=== PATIENT | female | born 1985 | race Caucasian/White ===

== ENCOUNTER 2017-02-20 17:28 | Emergency (ER) | payer OTHER ==
[2017-02-20] MEDS: ACETAMINOPHEN 325 MG TAB PO (18:11)
[2017-02-20 18:20] LABS: BASO # 0.1 10^3/uL (0.0-0.2); BASO % 0.7 % (0.0-1.0); EOS # 0.1 10^3/uL (0.0-0.50); EOS % 1.3 % (0.0-3.0); HEMATOCRIT 40.3 % (36.0-47.0); HEMOGLOBIN 14.1 g/dl (12.0-16.0); IMMATURE GRANULOCYTE % 0.4 % (0-0); LYMPH # 1.8 10^3/uL (1.5-4.5); LYMPH % 21.9 % (24.0-44.0); MEAN CORPUSCULAR HEMOGLOBIN 31.8 pg (27.0-33.0); MONO # 0.4 10^3/uL (0.0-0.8); MONO % 5.1 % (0.0-5.0); NEUTROPHILS # 5.9 10^3/uL (1.8-7.7); NEUTROPHILS % 70.6 % (36.0-66.0); PLATELET COUNT, AUTOMATED 265 10^3/uL (150-450); RED BLOOD COUNT 4.43 10^6/uL (4.00-5.40); RED CELL DISTRIBUTION WIDTH 11.9 % (11.5-14.5); WHITE BLOOD COUNT 8.4 10^3/uL (4.0-10.0)
[2017-02-20 18:33] LABS: D-DIMER QUANT 281.7 ng/ml (<500)
[2017-02-20 18:51] LABS: ALBUMIN 3.9 GM/DL (3.2-5.2); ALBUMIN/GLOBULIN RATIO 1.05 (1.00-1.93); ALKALINE PHOSPHATASE 64 U/L (45-117); ALT/SGPT 24 U/L (12-78); ANION GAP 6 MEQ/L (8-16); AST/SGOT 14 U/L (7-37); BILIRUBIN,DIRECT 0.1 MG/DL (0.0-0.2); BILIRUBIN,TOTAL 0.3 MG/DL (0.2-1.0); BLOOD UREA NITROGEN 16 MG/DL (7-18); CALCIUM LEVEL 8.6 MG/DL (8.5-10.1); CARBON DIOXIDE LEVEL 27 MEQ/L (21-32); CHLORIDE LEVEL 108 MEQ/L (98-107); CPK CREATINE PHOSPHOKINASE 66 U/L (26-192); CREATININE FOR GFR 0.71 MG/DL (0.55-1.02); FREE T4 1.23 NG/DL (0.76-1.46); GLOMERULAR FILTRATION RATE > 60.0 (>60); GLUCOSE, FASTING 89 MG/DL (70-105); POTASSIUM SERUM 4.1 MEQ/L (3.5-5.1); SODIUM LEVEL 141 MEQ/L (136-145); TOTAL PROTEIN 7.6 GM/DL (6.4-8.2); TROPONIN I < 0.02 NG/ML (< 0.10)
[2017-02-20 18:57] LABS: MB/CK RELATIVE INDEX 1.51 (< OR =4)
== END 2017-02-20 19:11 | disposition home or self-care (01) ==
LOC: M ED 17:28
DX: M79.601 Pain in right arm (principal); R07.89 Other chest pain; E07.9 Disorder of thyroid, unspecified; F17.210 Nicotine dependence, cigarettes, uncomplicated; Z82.49 Family history of ischemic heart disease and other diseases of the circulatory system; Z79.899 Other long term (current) drug therapy
CPT/HCPCS: 71046

== ENCOUNTER → 2017-03-26 | Outpatient (REF) | payer OTHER ==
[2017-03-26 20:19] LABS: INFLUENZA A AMPLIFICATION POSITIVE (NEGATIVE); INFLUENZA B AMPLIFICATION NEGATIVE (NEGATIVE); RSV AMPLIFICATION NEGATIVE (NEGATIVE)
== END ==
LOC: M LAB REF 19:04
DX: J11.1 Influenza due to unidentified influenza virus with other respiratory manifestations (principal)
CPT/HCPCS: 87631

== ENCOUNTER → 2017-06-18 | Outpatient (CLI) | payer OTHER ==
[2017-06-18 07:12] LABS: BASO % 0.6 % (0.0-1.0); EOS # 0.2 10^3/uL (0.0-0.50); EOS % 3.2 % (0.0-3.0); HEMATOCRIT 40.5 % (36.0-47.0); HEMOGLOBIN 14.2 g/dl (12.0-15.5); IMMATURE GRANULOCYTE % 0.4 % (0-3.0); LYMPH # 2.2 10^3/uL (1.5-4.5); LYMPH % 31.2 % (24.0-44.0); MEAN CORPUSCULAR HEMOGLOBIN 30.9 pg (27.0-33.0); MEAN CORPUSCULAR HGB CONC 35.1 g/dl (32.0-36.5); MEAN CORPUSCULAR VOLUME 88.2 fl (80.0-96.0); MONO # 0.5 10^3/uL (0.0-0.8); MONO % 7.2 % (0.0-5.0); NEUTROPHILS # 4.1 10^3/uL (1.8-7.7); NEUTROPHILS % 57.4 % (36.0-66.0); PLATELET COUNT, AUTOMATED 300 10^3/uL (150-450); RED BLOOD COUNT 4.59 10^6/uL (4.00-5.40); RED CELL DISTRIBUTION WIDTH 12.1 % (11.5-14.5); WHITE BLOOD COUNT 7.1 10^3/uL (4.0-10.0)
[2017-06-18 07:44] LABS: ALBUMIN 3.8 GM/DL (3.2-5.2); ALBUMIN/GLOBULIN RATIO 1.12 (1.00-1.93); ALKALINE PHOSPHATASE 63 U/L (45-117); ALT/SGPT 27 U/L (12-78); ANION GAP 7 MEQ/L (8-16); AST/SGOT 16 U/L (7-37); BILIRUBIN,TOTAL 0.3 MG/DL (0.2-1.0); BLOOD UREA NITROGEN 16 MG/DL (7-18); CARBON DIOXIDE LEVEL 27 MEQ/L (21-32); CHLORIDE LEVEL 108 MEQ/L (98-107); CHOLESTEROL LEVEL 157 MG/DL (<200); CHOLESTEROL RISK RATIO 2.378 (<5); CREATININE FOR GFR 0.69 MG/DL (0.55-1.30); FREE T4 1.08 NG/DL (0.76-1.46); GLOMERULAR FILTRATION RATE > 60.0 (>60); GLUCOSE, FASTING 83 MG/DL (70-100); HDL CHOLESTEROL 66 MG/DL (>40); LDL CHOLESTEROL 81.6 MG/DL (<100); NON-HDL-C 91 MG/DL; POTASSIUM SERUM 4.4 MEQ/L (3.5-5.1); SODIUM LEVEL 142 MEQ/L (136-145); TOTAL PROTEIN 7.2 GM/DL (6.4-8.2); TRIGLYCERIDES LEVEL 47 MG/DL (<150)
== END ==
LOC: M LAB 05:58
DX: Z00.00 Encounter for general adult medical examination without abnormal findings (principal); E03.9 Hypothyroidism, unspecified; Z13.220 Encounter for screening for lipoid disorders
CPT/HCPCS: 84443

== ENCOUNTER → 2017-07-29 | Outpatient (REF) | payer OTHER | LOC: M SFHCPLAZ 11:36 | DX: Z12.4 Encounter for screening for malignant neoplasm of cervix (principal) | CPT/HCPCS: 88142 ==

== ENCOUNTER → 2017-08-20 | Outpatient (REF) | payer OTHER | LOC: M SFHCPLAZ 15:59 | DX: D22.39 Melanocytic nevi of other parts of face (principal) | CPT/HCPCS: 88305 ==

== ENCOUNTER 2017-12-06 06:45 | Day surgery (SDC) | payer OTHER ==
[2017-12-06] MEDS ORDERED: PROPOFOL 200 MG/20 ML VIAL As Ordered (07:20)
[2017-12-06] MEDS ORDERED: dexameTHASONE 4 MG/ML 1ML VIAL (J1100) As Ordered (07:20)
[2017-12-06] MEDS ORDERED: LIDOCAINE 2% INJ 100 MG/5 ML SDV (FOR ANES.) As Ordered (07:20)
[2017-12-06] MEDS ORDERED: fentaNYL 100 MCG/2 ML INJECTION (J3010) As Ordered (07:20)
[2017-12-06] MEDS ORDERED: MIDAZOLAM INJ 2 MG/2 ML VIAL (J2250) As Ordered ×2 (07:21→07:58)
[2017-12-06 07:36] LABS: CONTROL LINE UCG INT CTR LINE PRESENT; URINE PREG TEST NEGATIVE (NEGATIVE)
[2017-12-06] MEDS: ceFAZolin 1GM INJ (J0690 PER 500MG) As Ordered (08:03)
[2017-12-06] MEDS: LIDOCAINE 2% W/EPIN INJ 20ML **PRES FREE As Ordered (08:03)
[2017-12-06] MEDS ORDERED: KETOROLAC 60 MG/2 ML VIAL (J1885) As Ordered (08:13)
[2017-12-06] MEDS: BACITRACIN OINT 30GM As Ordered (08:14)
[2017-12-06] MEDS ORDERED: LR 1,000 ML IV (09:30)
== END 2017-12-06 09:26 | disposition home or self-care (01) ==
LOC: M SDC 06:45
DX: D17.0 Benign lipomatous neoplasm of skin and subcutaneous tissue of head, face and neck (principal); L90.5 Scar conditions and fibrosis of skin; E03.9 Hypothyroidism, unspecified; F41.9 Anxiety disorder, unspecified; K58.9 Irritable bowel syndrome, unspecified; Z79.899 Other long term (current) drug therapy; Z72.0 Tobacco use
CPT/HCPCS: 11441

== ENCOUNTER → 2017-12-11 | Outpatient (REF) | payer OTHER ==
[2017-12-11 22:00] LABS: AMORPHOUS SEDIMENT SMALL (NEGATIVE); APPEARANCE, URINE HAZY (CLEAR); BACTERIA, URINE AUTO NEGATIVE (NEGATIVE); BILIRUBIN, URINE AUTO NEGATIVE (NEGATIVE); BLOOD, URINE BLOOD 1+ (NEGATIVE); COLOR, URINE YELLOW (YELLOW); GLUCOSE, URINE (UA) AUTO NEGATIVE (NEGATIVE); KETONE, URINE AUTO NEGATIVE (NEGATIVE); LEUKOCYTE ESTERASE, URINE AUTO NEGATIVE (NEGATIVE); NITRITE, URINE AUTO NEGATIVE (NEGATIVE); PROTEIN, URINE AUTO NEGATIVE (NEGATIVE); RBC, URINE AUTO 12 /HPF (0-3); SPECIFIC GRAVITY URINE AUTO 1.014 (1.002-1.035); SQUAMOUS EPITHELIAL CELL UR AU 2 /HPF (0-6); UROBILINOGEN, URINE AUTO 0.2 mg/dL (0.0-2.0); WBC, URINE AUTO 0 /HPF (0-3)
== END ==
LOC: M LAB REF 10:05
DX: N39.0 Urinary tract infection, site not specified (principal)

== ENCOUNTER 2017-12-14 21:34 | Emergency (ER) | payer OTHER ==
[2017-12-14 22:36] LABS: KETONE, URINE AUTO RFX NEGATIVE (NEGATIVE); LEUKOCYTE ESTERASE UR AUTO RFX NEGATIVE (NEGATIVE); MUCUS, URINE RFX SMALL (NEGATIVE); NITRITE, URINE AUTO RFX NEGATIVE (NEGATIVE); RBC, URINE AUTO RFX 10 /HPF (0-3); SPECIFIC GRAVITY UR AUTO RFX 1.014 (1.002-1.035); SQUAM EPITHELIAL CELL UR AURFX 2 /HPF (0-6); WBC, URINE AUTO RFX 2 /HPF (0-3)
[2017-12-14 22:54] LABS: CONTROL LINE UCG INT CTR LINE PRESENT; URINE PREG TEST NEGATIVE (NEGATIVE)
[2017-12-14] MEDS: KETOROLAC TROMETHAMINE 10 MG TAB PO (23:03)
[2017-12-15] MEDS: NORCO, ANEXSIA 5/325MG TABLET (HYDROcodone/ACETAMINOPHEN) PO (00:11)
[2017-12-15] MEDS: NORCO 5/325MG TABLET (BULK FOR ED) PO (00:39)
== END 2017-12-15 00:53 | disposition home or self-care (01) ==
LOC: M ED 12-15 00:53
DX: N20.1 Calculus of ureter (principal); K59.00 Constipation, unspecified; E03.9 Hypothyroidism, unspecified; F41.9 Anxiety disorder, unspecified; K58.9 Irritable bowel syndrome, unspecified; Z87.42 Personal history of other diseases of the female genital tract; Z87.442 Personal history of urinary calculi; F17.210 Nicotine dependence, cigarettes, uncomplicated; Z79.899 Other long term (current) drug therapy
CPT/HCPCS: 74176

== ENCOUNTER → 2017-12-14 | Outpatient (CLI) | payer OTHER ==
[2017-12-14 17:02] LABS: ALBUMIN 3.7 GM/DL (3.2-5.2); ALBUMIN/GLOBULIN RATIO 1.12 (1.00-1.93); ALKALINE PHOSPHATASE 67 U/L (45-117); ALT/SGPT 28 U/L (12-78); AMYLASE 47 U/L (25-115); ANION GAP 5 MEQ/L (8-16); AST/SGOT 15 U/L (7-37); BILIRUBIN,TOTAL 0.2 MG/DL (0.2-1.0); BLOOD UREA NITROGEN 10 MG/DL (7-18); CALCIUM LEVEL 9.1 MG/DL (8.5-10.1); CARBON DIOXIDE LEVEL 29 MEQ/L (21-32); CHLORIDE LEVEL 106 MEQ/L (98-107); CREATININE FOR GFR 0.68 MG/DL (0.55-1.30); GLOMERULAR FILTRATION RATE > 60.0 (>60); GLUCOSE, FASTING 77 MG/DL (70-100); LIPASE 160 U/L (73-393); POTASSIUM SERUM 4.2 MEQ/L (3.5-5.1); SODIUM LEVEL 140 MEQ/L (136-145)
[2017-12-14 17:06] LABS: BASO # 0.1 10^3/uL (0.0-0.2); BASO % 0.5 % (0.0-1.0); EOS # 0.2 10^3/uL (0.0-0.50); EOS % 1.4 % (0.0-3.0); HEMOGLOBIN 14.6 g/dl (12.0-15.5); IMMATURE GRANULOCYTE % 0.5 % (0-3.0); LYMPH # 3.1 10^3/uL (1.5-4.5); LYMPH % 26.4 % (24.0-44.0); MEAN CORPUSCULAR HEMOGLOBIN 32.2 pg (27.0-33.0); MEAN CORPUSCULAR VOLUME 94.9 fl (80.0-96.0); MONO # 0.6 10^3/uL (0.0-0.8); MONO % 5.4 % (0.0-5.0); NEUTROPHILS # 7.7 10^3/uL (1.8-7.7); NEUTROPHILS % 65.8 % (36.0-66.0); PLATELET COUNT, AUTOMATED 289 10^3/uL (150-450); RED BLOOD COUNT 4.53 10^6/uL (4.00-5.40); WHITE BLOOD COUNT 11.7 10^3/uL (4.0-10.0)
[2017-12-14 19:14] LABS: CHLAMYDIA DNA AMPLIFICATION NEGATIVE (NEGATIVE); GC DNA AMPLIFICATION NEGATIVE (NEGATIVE)
== END ==
LOC: M WUC 14:35
DX: R30.0 Dysuria (principal); R10.815 Periumbilic abdominal tenderness
CPT/HCPCS: 82150

== ENCOUNTER → 2018-01-08 | Outpatient (REF) | payer OTHER ==
[2018-01-08 16:25] LABS: AMORPHOUS SEDIMENT SMALL (NEGATIVE); APPEARANCE, URINE HAZY (CLEAR); BACTERIA, URINE AUTO NEGATIVE (NEGATIVE); BILIRUBIN, URINE AUTO NEGATIVE (NEGATIVE); BLOOD, URINE BLOOD NEGATIVE (NEGATIVE); COLOR, URINE YELLOW (YELLOW); GLUCOSE, URINE (UA) AUTO NEGATIVE (NEGATIVE); KETONE, URINE AUTO NEGATIVE (NEGATIVE); LEUKOCYTE ESTERASE, URINE AUTO NEGATIVE (NEGATIVE); NITRITE, URINE AUTO NEGATIVE (NEGATIVE); PROTEIN, URINE AUTO NEGATIVE (NEGATIVE); RBC, URINE AUTO 1 /HPF (0-3); SPECIFIC GRAVITY URINE AUTO 1.015 (1.002-1.035); SQUAMOUS EPITHELIAL CELL UR AU 0 /HPF (0-6); UROBILINOGEN, URINE AUTO 0.2 mg/dL (0.0-2.0); WBC, URINE AUTO 1 /HPF (0-3)
== END ==
LOC: M SMT 15:35
DX: N20.0 Calculus of kidney (principal)
CPT/HCPCS: 81001

== ENCOUNTER 2018-02-22 08:59 | Day surgery (SDC) | payer OTHER ==
[~2018-02-22] VITALS: Ht 167.6 cm; Wt 63.0 kg
[~2018-02-22 08:59] MED LIST: BENT20TA PO; CLAR1TAB2 PO; FLOM0.4C39 PO; FLON1SPR NARES; LEVO10VL PO; LEVO150T7 PO; MIRA3350 PO; MOME50SP NARES; NICO21DI31 TD; NITR100C2 PO; NORCOTAB PO; NS 1,000 ML IV ONE; PHEN-501 PO; PRED20TA PO; PROP10TAB PO; TGTCAP PO; propranolol PO
[2018-02-22] MEDS ORDERED: PROPOFOL 200 MG/20 ML VIAL As Ordered ONE ×2 (09:10→09:14)
[2018-02-22] MEDS ORDERED: LIDOCAINE 2% INJ 100 MG/5 ML SDV (FOR ANES.) As Ordered ONE (09:10)
--- NOTE | 2018-02-22 10:45 | ROOR ---
Patient Name: Koki Carlisle Procedure Date: 02/22/2018 10:14 AM Date of : 1985 Age: 32 Room: [facility] Gender: Female Note Status: Finalized Procedure: Colonoscopy Indications: Abnormal CT of the GI tract Providers: Jonatan Maddox MD Referring MD: ROMAIN ANDERSON Samia [facility] ROMAIN Perez Requesting Provider: Medicines: Monitored Anesthesia Care Complications: No immediate complications. Procedure: Pre-Anesthesia Assessment: - Prior to the procedure, a History and Physical was performed, and patient medications and allergies were reviewed. The patient is competent. The risks and benefits of the procedure and the sedation options and risks were discussed with the patient. All questions were answered and informed consent was obtained. Patient identification and proposed procedure were verified by the physician, the nurse and the anesthesiologist in the procedure room. Mental Status Examination: alert and oriented. Airway Examination: normal oropharyngeal airway and neck mobility. Respiratory Examination: clear to auscultation. CV Examination: normal. Prophylactic Antibiotics: The patient does not require prophylactic antibiotics. Prior Anticoagulants: The patient has taken no previous anticoagulant or antiplatelet agents. ASA Grade Assessment: II - A patient with mild systemic disease. After reviewing the risks and benefits, the patient was deemed in satisfactory condition to undergo the procedure. The anesthesia plan was to use monitored anesthesia care (MAC). Immediately prior to administration of medications, the patient was re-assessed for adequacy to receive sedatives. The heart rate, respiratory rate, oxygen saturations, blood pressure, adequacy of pulmonary ventilation, and response to care were monitored throughout the procedure. The physical status of the patient was re-assessed after the procedure. The Colonoscope was introduced through the anus and advanced to the terminal ileum, with identification of the appendiceal orifice and IC valve. The colonoscopy was performed without difficulty. The patient tolerated the procedure well. The quality of the bowel preparation was good. The terminal ileum, ileocecal valve, appendiceal orifice, and rectum were photographed. Scope insertion time was 3 minutes. Scope withdrawal time was 7 minutes. The total duration of the procedure was 10 minutes. Findings: The perianal and digital rectal examinations were normal. The terminal ileum appeared normal. Normal mucosa was found in the entire colon. Biopsies for histology were taken with a cold forceps from the right colon, left colon and rectosigmoid colon for evaluation of microscopic colitis. Verification of patient identification for the specimen was done by the physician and nurse using the patient's name, date and medical record number. Estimated blood loss was minimal. The entire examined colon appeared normal on direct and retroflexion views. Impression: - The examined portion of the ileum was normal. - Normal mucosa in the entire examined colon. Biopsied. - The entire examined colon is normal on direct and retroflexion views. Recommendation: - Patient has a contact number available for emergencies. The signs and symptoms of potential delayed complications were discussed with the patient. Return to normal activities tomorrow. Written discharge instructions were provided to the patient. - Resume previous diet. - Continue present medications. - Await pathology results. - Repeat colonoscopy at age 49 for screening purposes. - Based on the biopsy results you will receive a phone call from GI clinic in 2-3 weeks to review the pathology results AND/OR your results will be faxed to your Primary care physician. - Return to primary care physician. Jonatan Maddox MD Jonatan Maddox MD 02/22/2018 10:44:58 AM This report has been signed electronically. Number of Addenda: 0 Note Initiated On: 02/22/2018 10:14 AM Estimated Blood Loss: Estimated blood loss was minimal.
[2018-02-22 11:00] VITALS: BP 105/56
== END 2018-02-22 11:20 | disposition home or self-care (01) ==
LOC: M OPP 08:59
PROVIDERS: ATTEND Internal Medicine Gastroenterology
DX: R93.3 Abnormal findings on diagnostic imaging of other parts of digestive tract (principal); E03.9 Hypothyroidism, unspecified; F41.9 Anxiety disorder, unspecified; K58.9 Irritable bowel syndrome, unspecified; Z79.899 Other long term (current) drug therapy; F17.210 Nicotine dependence, cigarettes, uncomplicated

== ENCOUNTER → 2018-04-14 | Outpatient (REF) | payer OTHER ==
[~2018-04-14] MED LIST changes: -NS 1,000 ML IV ONE
[2018-04-14 12:06] LABS: INFLUENZA A AMPLIFICATION NEGATIVE (NEGATIVE); INFLUENZA B AMPLIFICATION NEGATIVE (NEGATIVE)
== END ==
LOC: M LAB REF 11:14
PROVIDERS: ATTEND Physician Assistant
DX: J11.1 Influenza due to unidentified influenza virus with other respiratory manifestations (principal)

== ENCOUNTER → 2018-04-14 | Outpatient (CLI) | payer OTHER ==
[2018-04-14 13:33] LABS: HEMATOCRIT 38.5 % (36.0-47.0); HEMOGLOBIN 13.3 g/dl (12.0-15.5); MEAN CORPUSCULAR HEMOGLOBIN 31.7 pg (27.0-33.0); MEAN CORPUSCULAR HGB CONC 34.5 g/dl (32.0-36.5); MEAN CORPUSCULAR VOLUME 91.7 fl (80.0-96.0); PLATELET COUNT, AUTOMATED 257 10^3/uL (150-450)
[2018-04-14 14:21] LABS: FREE T4 1.13 NG/DL (0.76-1.46); THYROID STIMULATING HORMONE 3.59 uIU/ML (0.358-3.740)
== END ==
LOC: M SMT 09:30
PROVIDERS: ATTEND Obstetrics & Gynecology
DX: N93.9 Abnormal uterine and vaginal bleeding, unspecified (principal)

== ENCOUNTER → 2018-04-15 | Outpatient (REF) | payer OTHER ==
[2018-04-19 16:21] LABS: HPV HYBRID CAPTURE II Negative (Negative)
== END ==
LOC: M LAB REF 14:42
PROVIDERS: ATTEND Obstetrics & Gynecology
DX: Z12.4 Encounter for screening for malignant neoplasm of cervix (principal); Z11.51 Encounter for screening for human papillomavirus (HPV)

== ENCOUNTER → 2018-04-20 | Outpatient (CLI) | payer OTHER ==
--- NOTE | 2018-04-21 05:13 | REP ---
Clinical: Abnormal uterine bleeding. Technique: Transabdominal pelvic ultrasound followed by transvaginal examination for better evaluation of the endometrium and adnexa. Findings: Bladder is collapsed. Normal anteverted uterus measures 8.9 x 4.0 x 5.7 cm. Endometrial complex measures 10.1 mm thickness. No discrete uterine or endometrial abnormalities appreciated. Right ovary is normal in appearance and measures 2.7 x 1.9 x 2.0 cm. Left ovary measures 2.9 x 2.6 x 3.0 cm and includes 1.6 cm dominant follicle. No pelvic fluid or adnexal mass lesion. Impression: Essentially normal pelvic ultrasound as described above. Electronically Signed by Erwin Corey MD 04/21/2018 05:05 A
== END ==
LOC: M RAD 17:06
PROVIDERS: ATTEND Obstetrics & Gynecology
DX: N93.9 Abnormal uterine and vaginal bleeding, unspecified (principal)

== ENCOUNTER 2018-05-03 13:53 | Emergency (ER) | payer OTHER ==
[~2018-05-03] VITALS: Ht 167.6 cm; Wt 65.9 kg
[2018-05-03] MEDS ORDERED: ESCI5SOL3 PO (14:02)
[2018-05-03] MEDS ORDERED: IBUP-1022 PO (14:02)
[2018-05-03] MEDS ORDERED: AMOX500T PO (14:02)
[2018-05-03] MEDS ORDERED: OMEP40CA2 PO (14:24)
[2018-05-03] MEDS ORDERED: GI COCKTAIL 50ML BTL(HYOSCYAMINE/MAALOX/LIDOCAINE VISCOUS)(1:3:1) PO ONE (14:45)
--- NOTE | 2018-05-03 15:20 | ECGEPIP ---
Stationary ECG Study [facility] - ED Test Date: 2018-05-03 Pat Name: OTF LEDEZMA Department: Room: - Gender: F Case Management Coordinator: : 1985 Requested By: JEET Skinner PA-C Order Number: [id number] Reading MD: Jenny Menon Measurements Intervals [place] Rate: 63 P: 46 TN: 139 QRS: 51 QRSD: 100 T: 56 QT: 380 QTc: 389 Interpretive Statements SINUS RHYTHM WITH MARKED SINUS ARRHYTHMIA POSSIBLE RIGHT VENTRICULAR CONDUCTION DELAY SIMILAR 03/02/17 Electronically Signed On 05-03-2018 15:20:04 EDT by Jenny Menon
[2018-05-03] MEDS ORDERED: CARA1TAB6 PO (15:29)
[2018-05-03 15:37] VITALS: BP 118/58
[2018-05-16] MEDS ORDERED: LEXA1TAB PO (09:36)
== END 2018-05-03 15:44 | disposition home or self-care (01) ==
LOC: M ED 13:53
DX: K27.9 Peptic ulcer, site unspecified, unspecified as acute or chronic, without hemorrhage or perforation (principal); H65.03 Acute serous otitis media, bilateral; K58.9 Irritable bowel syndrome, unspecified; F41.9 Anxiety disorder, unspecified; Z87.442 Personal history of urinary calculi; Z87.891 Personal history of nicotine dependence; Z79.899 Other long term (current) drug therapy

== ENCOUNTER → 2018-05-18 | Outpatient (REF) | payer OTHER ==
[~2018-05-18] MED LIST changes: +AMOX500T PO; +CARA1TAB6 PO; +ESCI5SOL3 PO; +HYDR-3715 PO; +IBUP-1022 PO; +LEVO100I PO; -LEVO10VL PO; +LEXA1TAB PO; -NORCOTAB PO; +OMEP40CA2 PO; +PROP10TA55 PO; -PROP10TAB PO
== END ==
LOC: M LAB REF 17:26
PROVIDERS: ATTEND Obstetrics & Gynecology
DX: N93.9 Abnormal uterine and vaginal bleeding, unspecified (principal)

== ENCOUNTER 2018-05-30 06:00 | Day surgery (SDC) | payer OTHER ==
[2018-05-30] VITALS (8 sets, daily range): BP systolic 84–129; BP diastolic 48–85
[~2018-05-30] VITALS: Ht 167.6 cm; Wt 72.2 kg
[2018-05-30 06:22] LABS: HEMOGLOBIN 14.2 g/dl (12.0-15.5); MEAN CORPUSCULAR HEMOGLOBIN 31.4 pg (27.0-33.0); MEAN CORPUSCULAR HGB CONC 34.6 g/dl (32.0-36.5); MEAN CORPUSCULAR VOLUME 90.7 fl (80.0-96.0); PLATELET COUNT, AUTOMATED 236 10^3/uL (150-450); RED BLOOD COUNT 4.52 10^6/uL (4.00-5.40); WHITE BLOOD COUNT 6.9 10^3/uL (4.0-10.0)
[2018-05-30 06:29] LABS: HCG, SERUM QUALITATIVE NEGATIVE (NEGATIVE)
[2018-05-30] MEDS ORDERED: LR 1,000 ML IV SCH ×2 (07:00→10:30)
[2018-05-30] MEDS ORDERED: METHYLENE BLUE 0.5% (5MG/ML) 10 ML AMP (PROVAYBLUE)(Q9968 PER 1MG) As Ordered ONE (07:09)
[2018-05-30] MEDS ORDERED: BUPIVACAINE HCL 0.25% 30 ML VIAL As Ordered ONE (07:09)
[2018-05-30] MEDS ORDERED: dexameTHASONE 4 MG/ML 1ML VIAL (J1100) As Ordered ONE (07:12)
[2018-05-30] MEDS ORDERED: ONDANSETRON 4MG/2ML VIAL (J2405) As Ordered ONE (07:12)
[2018-05-30] MEDS ORDERED: ROCURONIUM BROMIDE 50 MG/5 ML VIAL As Ordered ONE ×2 (07:12→08:48)
[2018-05-30] MEDS ORDERED: PROPOFOL 200 MG/20 ML VIAL As Ordered ONE (07:12)
[2018-05-30] MEDS ORDERED: LIDOCAINE 2% INJ 100 MG/5 ML SDV (FOR ANES.) As Ordered ONE (07:12)
[2018-05-30] MEDS ORDERED: fentaNYL 250 MCG/5 ML INJECTION (J3010) As Ordered ONE (07:12)
[2018-05-30] MEDS ORDERED: MIDAZOLAM INJ 2 MG/2 ML VIAL (J2250) As Ordered ONE (07:12)
[2018-05-30] MEDS ORDERED: KETOROLAC 60 MG/2 ML VIAL (J1885) As Ordered ONE (09:06)
[2018-05-30] MEDS ORDERED: SUGAMMADEX SODIUM 500 MG/5 ML VIAL (BRIDION) As Ordered ONE (09:06)
[2018-05-30] MEDS ORDERED: ePHEDrine SULFATE 25 MG/5 ML(5MG/ML) SYRINGE As Ordered ONE (09:21)
[2018-05-30] MEDS ORDERED: fentaNYL 100 MCG/2 ML INJECTION (J3010) As Ordered ONE (09:51)
[2018-05-30] MEDS ORDERED: PROMETHAZINE INJ 25 MG/ML VIAL (J2550) IV PRN (10:15)
[2018-05-30] MEDS ORDERED: PERCOCET 5MG/325MG TAB PO PRN (10:15)
[2018-05-30] MEDS ORDERED: OXYC1TAB23 PO (10:18)
[2018-05-30] MEDS ORDERED: IBUP80TA PO (10:20)
[2018-05-30] MEDS ORDERED: COLA100C5 PO (10:20)
[2018-05-30] MEDS ORDERED: ZOFR4TAB16 PO (10:21)
[2018-05-30] MEDS ORDERED: ONDANSETRON 4MG/2ML VIAL (J2405) IV PRN (10:30)
[2018-05-30] MEDS: HYDROMORPHONE HCL 0.5 MG/ 0.5 ML SYRINGE (J1170 PER 1) IV PRN ×4 (10:35→10:55)
[2018-05-30] MEDS: PERCOCET 5MG/325MG TAB PO PRN ×2 (10:45→11:15)
--- NOTE | 2018-05-30 10:53 | NUR ---
Operative Note DATE OF PROCEDURE: 05/30/2018 PREOPERATIVE DIAGNOSIS: 1. Abnormal uterine bleeding, severe primary dysmenorrhea POSTOPERATIVE DIAGNOSIS: 1. Abnormal uterine bleeding, severe primary dysmenorrhea PROCEDURE PERFORMED: Robotic-assisted total laparoscopic hysterectomy, bilateral salpingectomy, right ovarian cystectomy and cystoscopy. SURGEON: Angelito Tam DO. PERSONAL BANKING ASSISTANT: LENNOX Pandey (needed for uterine manipulation). ANESTHESIA: General endotracheal. SPECIMENS TO PATHOLOGY: Uterus, cervix with bilateral fallopian tubes ESTIMATED BLOOD LOSS: 200 mL. FLUIDS REPLACED: 1.5 liters lactated Ringer's. DRAINS: Dyer catheter 200 mL. COMPLICATIONS: None. PREOPERATIVE ANTIBIOTICS: Ancef 2g IV x 1 (administered within 30 minutes of procedure start time) INTRAOPERATIVE FINDINGS: Uterus was approximately cm in greatest dimension. The uterus was of normal shape/contour (no leiomyomas). The right and left ovary and fallopian tubes were normal in appearance with the exception of a right ovarian cyst approximately 3 cm greatest dimension. Cystoscopic findings: No bladder injury. No suture material. Bilateral ureteral orifice efflux visualized after IV infusion of methylene blue. INDICATION: Abnormal uterine bleeding, declining further medical management or more conservative surgical management (i.e endometrial ablation) PROCEDURE: The patient was counseled and consented on the risks, benefits, indications, and alternatives of the procedure. Informed consent was obtained. She was take n to the operating room with an IV running and placed on the operating table in the dorsal supine position. General anesthesia was administered and airway secured without any difficulty. The patient was placed in a level horizontal low lithotomy position. She was prepped and draped in a normal sterile fashion. A time-out was performed per protocol. A Dyer catheter was placed under sterile conditions. A sterile speculum was placed into the vagina with good visualization of the cervix. The anterior lip of the cervix was grasped with a single-tooth tenaculum and downward traction was applied. The uterus was sounded to 9 cm. The cervix was sequentially dilated with Magen dilators up to #16. The anterior and posterior lip were tagged with and interrupted stitch using #0 Vicryl suture. The VCare uterine manipulator was placed in typical fashion without any difficulty. The single-toothed tenaculum was removed. The sterile speculum was removed. The VCare uterine manipulator was noted to be adequately in place. A glove switch was performed. Attention was turned to the abdomen. A 2 mm umbilical incision was made with the 11 blade. The Veress needle was placed through this incision into the intraperitoneal cavity. Intraperitoneal placement was confirmed with the following checks: no resistance/ease of flow of normal saline from the attached syringe through the Veress needle, no return of blood/fluid/succus upon aspirating with the attached syringe, a positive drop test, and the opening pressure during insufflation was less than 10 mmHg. The abdomen was insufflated with 2.5 liters of gas. The Veress needle was removed. An 8 mm horizontal midline, supraumbilical incision was made with the 11 blade. Through this incision, the trocar was placed under direct visualization technique into the intraperitoneal cavity. Intraperitoneal placement was confirmed. The patient was placed in a low lithotomy steep Trendelenberg position. The right and left lower quadrant port sites were placed via 8 mm incisions using the 11 blade. The 8 mm da Conor cannulas were placed under laparoscopic guidance on both sides. An additional 8 mm accessory port-site was placed under laparoscopic guidance in the left upper quadrant. Given the successful placement of all the DaVinci cannulas, the robot was easily side-docked. Attention was turned to the AddMyBesti robotic console. The right fallopian tube, utero-ovarian ligament, and round ligament were sequentially clamped, coagulated and transected with the ITM Softwareinci vessel sealer device. The Da Conor vessel sealer was used to dissect and mobilize the right-sided half of the vesicouterine peritoneum/"bladder flap" with both blunt and bipolar dissection. The right uterine vasculature was skeletonized and identified. Excellent hemostasis was achieved. The left fallopian tube, utero-ovarian ligament and round ligament were sequentially clamped, coagulated and transected using the Da Conor vessel sealer device. The left uterine vasculature was skeletonized and easily identified. Excellent hemostasis was noted. The remainder of the vesicouterine peritoneum was dissected and mobilized along the anterior portion of the [facility] uterine manipulator cup in order to complete the bladder flap. This resulted in adequate mobilization/displacement of the bladder away from the cervix. During all of the dissection described above, an occasional small bleeding vessel needed to be cauterized with the DaVinci bipolar forceps. The right and left uterine vasculature were sequentially clamped, coagulated and transected with both DaVinci bipolar forceps and vessel sealer instruments. Excellent blanching of the uterus was noted, thus indicating that the blood supply to the uterus was obliterated. Excellent hemostasis was noted. The DaVinci monopolar kamlesh were used to create the circumferential colpotomy around the VCare cervical cup border. Incidental small bleeding vaginal vessels were cauterized with the DaVinci bipolar forceps. This circumferential incision was completed and the uterus with the cervix was noted to be fully amputated as one unit. This specimen was brought through the colpotomy into the vagina, and ultimately removed and sent to pathology for permanent section. The right and left distal fallopian tubes were identified and excised with the Da Conor vessel sealer instrument, thus removing both fimbriated ends of each fallopian tube. These specimens were brought through the accessory cannula and sent to pathology for permanent section. The right ovarian cyst was dissected with the monopolar kamlesh and removed intact. This was also placed in the vagina for eventual removal. The vaginal cuff was closed in running fashion with V-Loc suture. Excellent hemostasis of the vaginal cuff was noted. The lower abdomen/pelvis was irrigated and suctioned, thus removing all blood and clot. Excellent hemostasis was noted. Krystle was placed over the surgical sites to maintain hemostasis. The insufflation gas was released from the intraperitoneal cavity. All cannulas were removed. The robot was un-docked without any difficulty. The patient was taken out of steep Trendelenburg and placed back into a level horizontal low lithotomy position. The Dyer catheter was removed. A 30 degree cystoscope was placed transurethrally into the bladder. The entire bladder mucosa was examined. There was no evidence of a bladder injury or suture material. Brisk bilateral ureteral orifice efflux of urine was visualized after IV infusion of methylene blue. The cystoscope was removed and the Dyer catheter was replaced. The vagina was copiously irrigated. The specimens were removed from the vagina. The vaginal cuff was palpated and noted to be intact. The sponge, needle, and instrument counts were correct. A glove switch was performed. Attention was turned back to the abdomen. The patient was placed back into Trendelenburg. The gas was released from the abdomen. The cannulas were all removed. Each skin incision was closed with #4-0 Monocryl in subcuticular fashion and reinforced with Dermabond. Sponge, needle, and instrument counts were again correct. The patient tolerated the entire procedure well. She was transferred to the postanesthesia care unit in good and stable condition. Tomi Tam DO
[2018-05-30] MEDS: fentaNYL 100 MCG/2 ML INJECTION (J3010) IV PRN ×4 (11:10→11:25)
[2018-05-30] MEDS: LEVOTHYROXINE 150MCG TABLET (0.15MG) PO SCH (12:58)
[2018-05-30] MEDS: SUCRALFATE 1 GM TAB PO SCH ×3 (12:58→20:07)
[2018-05-30] MEDS: DOCUSATE SODIUM 100 MG CAP PO SCH ×2 (12:58→20:07)
[2018-05-30] MEDS: LR 1,000 ML IV SCH ×2 (12:58→18:23)
[2018-05-30] MEDS: ESCITALOPRAM OXALATE 10 MG TAB (LEXAPRO) PO SCH (12:58)
[2018-05-30] MEDS: OMEPRAZOLE 20 MG CAP PO SCH (12:58)
[2018-05-30] MEDS: FLUTICASONE PROP 0.05% NASAL SPRAY 16 GM (FLONASE) NARES SCH (12:59)
[2018-05-30] MEDS: KETOROLAC 30 MG/ML VIAL (J1885) IV SCH ×2 (15:19→20:07)
[2018-05-30] MEDS: ONDANSETRON 4MG/2ML VIAL (J2405) IV PRN (17:25)
[2018-05-30] MEDS: SIMETHICONE 80 MG CHEW TAB PO PRN (20:37)
[2018-05-31] MEDS: PERCOCET 5MG/325MG TAB PO PRN ×3 (00:23→11:58)
[2018-05-31 02:00] VITALS: BP 109/58
[2018-05-31] MEDS: KETOROLAC 30 MG/ML VIAL (J1885) IV SCH (02:40)
[2018-05-31] MEDS: SIMETHICONE 80 MG CHEW TAB PO PRN ×2 (02:40→08:51)
[2018-05-31] MEDS: LEVOTHYROXINE 150MCG TABLET (0.15MG) PO SCH (05:27)
[2018-05-31 06:00] VITALS: BP 115/54
[2018-05-31] MEDS: ONDANSETRON 4MG/2ML VIAL (J2405) IV PRN (06:26)
[2018-05-31 06:40] LABS: BASO % 0.3 % (0.0-1.0); EOS # 0.1 10^3/uL (0.0-0.50); EOS % 0.7 % (0.0-3.0); HEMATOCRIT 31.1 % (36.0-47.0); LYMPH # 2.7 10^3/uL (1.5-4.5); LYMPH % 28.3 % (24.0-44.0); MEAN CORPUSCULAR HEMOGLOBIN 31.3 pg (27.0-33.0); MEAN CORPUSCULAR HGB CONC 34.4 g/dl (32.0-36.5); MEAN CORPUSCULAR VOLUME 90.9 fl (80.0-96.0); MONO # 0.7 10^3/uL (0.0-0.8); MONO % 7.6 % (0.0-5.0); NEUTROPHILS # 5.9 10^3/uL (1.8-7.7); NEUTROPHILS % 62.9 % (36.0-66.0); PLATELET COUNT, AUTOMATED 191 10^3/uL (150-450); RED BLOOD COUNT 3.42 10^6/uL (4.00-5.40); WHITE BLOOD COUNT 9.4 10^3/uL (4.0-10.0)
[2018-05-31 06:46] LABS: HEMOGLOBIN 10.7 g/dl (12.0-15.5)
[2018-05-31] MEDS: DOCUSATE SODIUM 100 MG CAP PO SCH (08:50)
[2018-05-31] MEDS: SUCRALFATE 1 GM TAB PO SCH ×2 (08:50→11:57)
[2018-05-31] MEDS: OMEPRAZOLE 20 MG CAP PO SCH (08:51)
[2018-05-31] MEDS: ESCITALOPRAM OXALATE 10 MG TAB (LEXAPRO) PO SCH (08:51)
[2018-05-31] MEDS: FLUTICASONE PROP 0.05% NASAL SPRAY 16 GM (FLONASE) NARES SCH (08:51)
[2018-05-31 10:00] VITALS: BP 116/66
[2018-05-31] MEDS ORDERED: IBUPROFEN 800 MG TAB PO SCH (11:00)
== END 2018-05-31 12:53 | disposition home or self-care (01) ==
LOC: M SDC 06:00 → M MSPAV 11:56 → M SDC 05-31 12:53
PROVIDERS: ATTEND Obstetrics & Gynecology
DX: N92.6 Irregular menstruation, unspecified (principal); N94.6 Dysmenorrhea, unspecified; N83.11 Corpus luteum cyst of right ovary; E03.9 Hypothyroidism, unspecified; K58.9 Irritable bowel syndrome, unspecified; K21.9 Gastro-esophageal reflux disease without esophagitis; F41.9 Anxiety disorder, unspecified; Z92.3 Personal history of irradiation; Z79.899 Other long term (current) drug therapy
CPT/HCPCS: 36415; 58571; 84703; 85025; 85027; 86850; 86900; 86901; 88307; 96361; 96374; 96375; 96376; J0690; J1100; J1170; J1885; J2250; J2405; J3010; Q9968

== ENCOUNTER → 2018-07-07 | Outpatient (CLI) | payer OTHER ==
[~2018-07-07] MED LIST changes: +COLA100C5 PO; +IBUP80TA PO; +OXYC1TAB23 PO; +ZOFR4TAB16 PO
[2018-07-07 17:13] LABS: FREE T4 1.62 NG/DL (0.76-1.46); THYROID STIMULATING HORMONE 0.466 uIU/ML (0.358-3.740)
== END ==
LOC: M LAB 15:43
PROVIDERS: ATTEND Physician Assistant
DX: E03.9 Hypothyroidism, unspecified (principal)

== ENCOUNTER → 2018-07-12 | Outpatient (REF) | payer OTHER ==
[2018-07-12 20:14] LABS: CHLAMYDIA DNA AMPLIFICATION NEGATIVE (NEGATIVE); GC DNA AMPLIFICATION NEGATIVE (NEGATIVE)
== END ==
LOC: M LAB REF 17:07
PROVIDERS: ATTEND Obstetrics & Gynecology
DX: Z11.3 Encounter for screening for infections with a predominantly sexual mode of transmission (principal)

== ENCOUNTER → 2018-09-09 | Outpatient (REF) | payer OTHER | LOC: M LAB REF 15:50 | PROVIDERS: ATTEND Physician Assistant | DX: J02.9 Acute pharyngitis, unspecified (principal) ==

== ENCOUNTER → 2018-09-27 | Outpatient (REF) | payer OTHER | LOC: M SFHCPLAZ 10:02 | PROVIDERS: ATTEND Physician Assistant Medical | DX: K12.1 Other forms of stomatitis (principal) ==

== ENCOUNTER → 2018-09-28 | Outpatient (CLI) | payer OTHER ==
[2018-09-28 09:59] LABS: BASO # 0.1 10^3/uL (0.0-0.2); BASO % 0.6 % (0.0-1.0); EOS # 0.1 10^3/uL (0.0-0.50); EOS % 1.2 % (0.0-3.0); HEMATOCRIT 43.2 % (36.0-47.0); HEMOGLOBIN 14.5 g/dl (12.0-15.5); LYMPH # 1.9 10^3/uL (1.5-4.5); LYMPH % 22.1 % (24.0-44.0); MEAN CORPUSCULAR HEMOGLOBIN 30.6 pg (27.0-33.0); MEAN CORPUSCULAR HGB CONC 33.6 g/dl (32.0-36.5); MEAN CORPUSCULAR VOLUME 91.1 fl (80.0-96.0); MONO # 0.5 10^3/uL (0.0-0.8); MONO % 6.1 % (0.0-5.0); NEUTROPHILS # 5.9 10^3/uL (1.8-7.7); NEUTROPHILS % 69.8 % (36.0-66.0); PLATELET COUNT, AUTOMATED 247 10^3/uL (150-450); RED BLOOD COUNT 4.74 10^6/uL (4.00-5.40); WHITE BLOOD COUNT 8.4 10^3/uL (4.0-10.0)
[2018-09-28 11:07] LABS: FREE T4 1.19 NG/DL (0.76-1.46)
[2018-09-28 11:20] LABS: HIV 1&2 SCREEN CENTAUR NEGATIVE (NEGATIVE)
[2018-09-30 00:07] LABS: HSV IgM TYPES 1&2 2.03 Ratio (0.00-0.90)
== END ==
LOC: M LAB 08:54
PROVIDERS: ATTEND Physician Assistant Medical
DX: K12.1 Other forms of stomatitis (principal)

== ENCOUNTER → 2018-10-05 | Outpatient (REF) | payer OTHER | LOC: M LAB REF 18:03 | PROVIDERS: ATTEND Specialist | DX: K13.79 Other lesions of oral mucosa (principal) ==

== ENCOUNTER → 2018-11-03 | Outpatient (CLI) | payer OTHER ==
--- NOTE | 2018-11-11 08:55 | REP ---
Clinical: Epigastric pain. Technique: Real time sagastume scale and color evaluation using curved array transducer. Findings: Liver, spleen, and pancreas are normal in contour, size, and echogenicity without focal significant hepatic, pancreatic, or splenic lesion identified. Splenic index equals 392. A 7 mm echogenic focus within the left hepatic lobe is nonspecific and likely benign suggesting small hemangioma. The gallbladder is normal and without gallstones, wall thickening, or pericholecystic fluid. No biliary ductal dilatation is appreciated and the common bile duct measures 2.2 mm diameter. Bilateral kidneys are normal in reniform shape without hydronephrosis. Right kidney measures 10.9 x 4.5 x 3.4 cm. Left kidney measures 10.1 x 4.1 x 5.3 cm. Abdominal aorta is normal and measures 1.8 cm maximal diameter. No ascites. Abdominal aorta demonstrates normal arterial wave pattern and velocity and 92.3 cm/sec. Superior mesenteric artery velocities are 129 and 168 cm/sec on inspiration and expiration respectively. A 33 degrees angle on inspiration. 53 degrees angle on expiration. Celiac artery velocities remain normal at 109 cm/sec and 119 cm/sec on inspiration and expiration respectively. A 30 degrees angle on inspiration increases to 72 degrees on expiration with mild hooking appearance which may be associated with median arcuate ligament syndrome. Impression: 1. Possible subcentimeter hepatic hemangioma in the left lobe of the liver. 2. Findings related to the celiac artery on Doppler and sagastume scale imaging as described above are somewhat inconclusive and further investigation as well as correlation is recommended. Electronically Signed by Erwin Corey MD 11/11/2018 08:46 A
== END ==
LOC: M RAD 07:27
PROVIDERS: ATTEND Internal Medicine Gastroenterology
DX: R10.13 Epigastric pain (principal)

== ENCOUNTER → 2018-11-18 | Outpatient (REF) | payer OTHER | LOC: M LAB REF 14:55 | PROVIDERS: ATTEND Internal Medicine Gastroenterology | DX: K58.0 Irritable bowel syndrome with diarrhea (principal) ==

== ENCOUNTER → 2019-01-17 | Outpatient (CLI) | payer OTHER ==
[~2019-01-17] MED LIST changes: -OMEP40CA2 PO; +OMEP40CA97 PO
[2019-01-17 17:18] LABS: BASO % 0.1 % (0.0-1.0); HEMATOCRIT 42.2 % (36.0-47.0); HEMOGLOBIN 14.4 g/dl (12.0-15.5); LYMPH # 0.6 10^3/uL (1.5-5.0); LYMPH % 4.9 % (24.0-44.0); MEAN CORPUSCULAR HEMOGLOBIN 32.4 pg (27.0-33.0); MEAN CORPUSCULAR HGB CONC 34.1 g/dl (32.0-36.5); MEAN CORPUSCULAR VOLUME 94.8 fl (80.0-96.0); MONO # 0.1 10^3/uL (0.0-0.8); MONO % 0.6 % (0.0-5.0); NEUTROPHILS # 11.6 10^3/uL (1.5-8.5); NEUTROPHILS % 94.1 % (36.0-66.0); PLATELET COUNT, AUTOMATED 280 10^3/uL (150-450); RED BLOOD COUNT 4.45 10^6/uL (4.00-5.40); WHITE BLOOD COUNT 12.3 10^3/uL (4.0-10.0)
[2019-01-17 17:30] LABS: ALBUMIN 3.9 GM/DL (3.2-5.2); ALT/SGPT 24 U/L (12-78); AMYLASE 38 U/L (25-115); BILIRUBIN,TOTAL 0.4 MG/DL (0.2-1.0); BLOOD UREA NITROGEN 17 MG/DL (7-18); CALCIUM LEVEL 9.7 MG/DL (8.5-10.1); CARBON DIOXIDE LEVEL 25 MEQ/L (21-32); CHLORIDE LEVEL 105 MEQ/L (98-107); CREATININE FOR GFR 0.71 MG/DL (0.55-1.30); GLOMERULAR FILTRATION RATE > 60.0 (>60); GLUCOSE, FASTING 107 MG/DL (70-100); LIPASE 90 U/L (73-393); POTASSIUM SERUM 4.2 MEQ/L (3.5-5.1); SODIUM LEVEL 138 MEQ/L (136-145); TOTAL PROTEIN 7.5 GM/DL (6.4-8.2)
== END ==
LOC: M WUC 15:14
PROVIDERS: ATTEND Nurse Practitioner Family
DX: R10.13 Epigastric pain (principal)

== ENCOUNTER → 2019-02-24 | Outpatient (CLI) | payer OTHER ==
[2019-02-24 16:58] LABS: BASO % 0.5 % (0.0-1.0); EOS # 0.1 10^3/uL (0.0-0.5); EOS % 1.3 % (0.0-3.0); HEMATOCRIT 43.8 % (36.0-47.0); HEMOGLOBIN 14.5 g/dl (12.0-15.5); LYMPH # 2.4 10^3/uL (1.5-5.0); LYMPH % 27.3 % (24.0-44.0); MEAN CORPUSCULAR HEMOGLOBIN 31.7 pg (27.0-33.0); MEAN CORPUSCULAR HGB CONC 33.1 g/dl (32.0-36.5); MEAN CORPUSCULAR VOLUME 95.8 fl (80.0-96.0); MONO # 0.6 10^3/uL (0.0-0.8); MONO % 6.4 % (0.0-5.0); NEUTROPHILS # 5.6 10^3/uL (1.5-8.5); NEUTROPHILS % 64.3 % (36.0-66.0); PLATELET COUNT, AUTOMATED 214 10^3/uL (150-450); RED BLOOD COUNT 4.57 10^6/uL (4.00-5.40); WHITE BLOOD COUNT 8.7 10^3/uL (4.0-10.0)
[2019-02-24 17:33] LABS: ALBUMIN 3.7 GM/DL (3.2-5.2); ALT/SGPT 16 U/L (12-78); BILIRUBIN,DIRECT 0.1 MG/DL (0.0-0.2); BILIRUBIN,TOTAL 0.2 MG/DL (0.2-1.0); BLOOD UREA NITROGEN 22 MG/DL (7-18); CREATININE FOR GFR 0.75 MG/DL (0.55-1.30); FERRITIN 21 NG/ML (8-252); FREE T4 1.33 NG/DL (0.76-1.46); GLOMERULAR FILTRATION RATE > 60.0 (>60); IRON (FE) 100 UG/DL (50-170); PERCENT SATURATION 35.7 % (13.2-45.0); THYROID STIMULATING HORMONE 0.179 uIU/ML (0.358-3.740); TOTAL IRON BINDING CAPACITY 280 UG/DL (250-450); TOTAL PROTEIN 7.2 GM/DL (6.4-8.2)
[2019-02-24 17:37] LABS: VITAMIN B12 LEVEL 482 PG/ML (247-911)
[2019-02-24 17:38] LABS: FOLATE 10.1 NG/ML (>5.4)
== END ==
LOC: M LAB 16:15
PROVIDERS: ATTEND Internal Medicine Gastroenterology
DX: R63.4 Abnormal weight loss (principal); R19.7 Diarrhea, unspecified

== ENCOUNTER → 2019-03-14 | Outpatient (CLI) | payer OTHER ==
[~2019-03-14] MED LIST changes: +GLUCAGON FOR INJ 1 MG VIAL (J1610) As Ordered ONE; +ISOVUE-370 76% 100ML VIAL (Q9967) As Ordered ONE; +PROP10TA56 PO; +VoLumen 0.1% SUSPENSION 450ML BOTTLE As Ordered ONE
--- NOTE | 2019-03-15 05:41 | REP ---
Clinical: Abnormal weight loss. Technique: Contrast enhanced CT of the abdomen and pelvis using enterography technique including images obtained in arterial and portal venous phases of enhancement along with coronal and sagittal MIP re-formations. 100 ml Isovue 370 intravenous contrast material and low density oral contrast material administered as per protocol. Comparison: 12/14/2017. Findings: Evaluation of the enteric system including stomach, small, and large bowel is unremarkable in both the arterial and portal venous phases of enhancement. No bowel wall thickening or perienteric inflammatory stranding is appreciated. No obstruction or obvious mass lesion. No obvious areas of stenosis or stricturing identified. Normal cecum, appendix and terminal ileum are identified in the right lower quadrant. Incidental few scattered sigmoid diverticula noted without acute diverticulitis. Liver, spleen, pancreas, gallbladder, bilateral adrenal glands and kidneys are essentially normal. No ascites. No free air. No adenopathy. Pelvis demonstrates normal bladder and evidence for prior hysterectomy. Abdominal aorta and vasculature appear normal. Surrounding musculoskeletal structures are intact. Impression: Essentially normal examination. Few scattered sigmoid diverticula suggested. Electronically Signed by Erwin Corey MD 03/15/2019 05:32 A
== END ==
LOC: M RAD 08:46
PROVIDERS: ATTEND Internal Medicine Gastroenterology
DX: R63.4 Abnormal weight loss (principal)
CPT/HCPCS: 74177; J1610; Q9967

== ENCOUNTER 2019-03-27 13:19 | Day surgery (SDC) | payer OTHER ==
[~2019-03-27] VITALS: Ht 167.6 cm; Wt 53.6 kg
[~2019-03-27 13:19] MED LIST changes: -GLUCAGON FOR INJ 1 MG VIAL (J1610) As Ordered ONE; -ISOVUE-370 76% 100ML VIAL (Q9967) As Ordered ONE; +NS 1,000 ML IV ONE; -VoLumen 0.1% SUSPENSION 450ML BOTTLE As Ordered ONE
[2019-03-27] MEDS ORDERED: LIDOCAINE 2% INJ 100 MG/5 ML SDV (FOR ANES.) As Ordered ONE (14:46)
[2019-03-27] MEDS ORDERED: propofoL 200 MG/20 ML VIAL As Ordered ONE ×3 (14:46→15:06)
--- NOTE | 2019-03-27 15:34 | ROOR ---
Patient Name: Koki Carlisle Procedure Date: 03/27/2019 2:47 PM Date of : 1985 Age: 33 Room: [facility] Gender: Female Note Status: Finalized Procedure: Upper GI endoscopy Indications: Nausea, Weight loss Providers: Jonatan Maddox MD Referring MD: Leticia OROPEZA Requesting Provider: Medicines: Monitored Anesthesia Care Complications: No immediate complications. Procedure: Pre-Anesthesia Assessment: - Prior to the procedure, a History and Physical was performed, and patient medications and allergies were reviewed. The patient is competent. The risks and benefits of the procedure and the sedation options and risks were discussed with the patient. All questions were answered and informed consent was obtained. Patient identification and proposed procedure were verified by the physician, the nurse and the anesthesiologist in the procedure room. Mental Status Examination: alert and oriented. Airway Examination: normal oropharyngeal airway and neck mobility. Respiratory Examination: clear to auscultation. CV Examination: normal. Prophylactic Antibiotics: The patient does not require prophylactic antibiotics. Prior Anticoagulants: The patient has taken no previous anticoagulant or antiplatelet agents. ASA Grade Assessment: II - A patient with mild systemic disease. After reviewing the risks and benefits, the patient was deemed in satisfactory condition to undergo the procedure. The anesthesia plan was to use monitored anesthesia care (MAC). Immediately prior to administration of medications, the patient was re-assessed for adequacy to receive sedatives. The heart rate, respiratory rate, oxygen saturations, blood pressure, adequacy of pulmonary ventilation, and response to care were monitored throughout the procedure. The physical status of the patient was re-assessed after the procedure. The Colonoscope was introduced through the mouth, and advanced to the second part of duodenum. The upper GI endoscopy was accomplished without difficulty. The patient tolerated the procedure well. Findings: No gross lesions were noted in the entire esophagus. Biopsies were obtained from the proximal and distal esophagus with cold forceps for histology of suspected eosinophilic esophagitis. Verification of patient identification for the specimen was done by the physician and nurse using the patient's name, date and medical record number. Estimated blood loss was minimal. Scattered moderate inflammation characterized by erythema and granularity was found in the gastric antrum. Biopsies were taken with a cold forceps for Helicobacter pylori testing. No gross lesions were noted in the entire examined duodenum. Biopsies for histology were taken with a cold forceps for evaluation of celiac disease. Normal mucosa was found in the jejunum. Upto 50 cm of small bowel is examined. No abnormal mucosal lesions. Impression: - No gross lesions in esophagus. Biopsied. - Gastritis. Biopsied. - No gross lesions in the entire examined duodenum. Biopsied. - Normal mucosa was found in the jejunum. Recommendation: - Patient has a contact number available for emergencies. The signs and symptoms of potential delayed complications were discussed with the patient. Return to normal activities tomorrow. Written discharge instructions were provided to the patient. - Resume previous diet. - Use Zofran (ondansetron) 4 mg PO daily for 2 weeks. - Continue present medications. - Await pathology results. - Return to GI clinic in [facility] (address [address], [address], [place] [address]) in 4 -- 6 weeks. Please call GI clinic @ [phone] for apppointment date and time. - Return to primary care physician. Jonatan Maddox MD Jonatan Maddox MD 03/27/2019 3:34:29 PM Electronically signed by Jonatan Maddox MD Number of Addenda: 0 Note Initiated On: 03/27/2019 2:47 PM Estimated Blood Loss: Estimated blood loss was minimal.
[2019-03-27 15:59] VITALS: BP 110/60
== END 2019-03-27 16:03 | disposition home or self-care (01) ==
LOC: M OPP 13:19
PROVIDERS: ATTEND Internal Medicine Gastroenterology
DX: K29.70 Gastritis, unspecified, without bleeding (principal); K22.8 Other specified diseases of esophagus; R63.4 Abnormal weight loss; E05.90 Thyrotoxicosis, unspecified without thyrotoxic crisis or storm; K58.9 Irritable bowel syndrome, unspecified; F41.9 Anxiety disorder, unspecified; K21.9 Gastro-esophageal reflux disease without esophagitis; D64.9 Anemia, unspecified; F17.210 Nicotine dependence, cigarettes, uncomplicated; Z87.42 Personal history of other diseases of the female genital tract; E04.1 Nontoxic single thyroid nodule; E89.0 Postprocedural hypothyroidism; Z79.899 Other long term (current) drug therapy

== ENCOUNTER → 2019-05-16 | Outpatient (CLI) | payer OTHER ==
[~2019-05-16] MED LIST changes: -NS 1,000 ML IV ONE
[2019-05-16 16:28] LABS: FREE T4 1.36 NG/DL (0.76-1.46); THYROID STIMULATING HORMONE 1.81 uIU/ML (0.358-3.740)
== END ==
LOC: M WUC 14:27
PROVIDERS: ATTEND Physician Assistant Medical
DX: E03.9 Hypothyroidism, unspecified (principal)

== ENCOUNTER 2019-11-02 07:49 | Emergency (ER) | payer OTHER ==
[~2019-11-02] VITALS: Ht 167.6 cm; Wt 59.9 kg
[2019-11-02] MEDS ORDERED: SUPPLEMENTS (07:58)
[2019-11-02] MEDS ORDERED: LEVO125T4 (07:58)
[2019-11-02] MEDS ORDERED: KETOROLAC 30 MG/ML 1ML VIAL IV ONE (08:15)
[2019-11-02 08:53] LABS: BASO % 0.4 % (0.0-1.0); EOS # 0.1 10^3/uL (0.0-0.5); EOS % 0.6 % (0.0-3.0); HEMATOCRIT 42.5 % (36.0-47.0); HEMOGLOBIN 14.6 g/dl (12.0-15.5); LYMPH # 1.4 10^3/uL (1.5-5.0); MEAN CORPUSCULAR HGB CONC 34.4 g/dl (32.0-36.5); MEAN CORPUSCULAR VOLUME 95.9 fl (80.0-96.0); MONO # 0.5 10^3/uL (0.0-0.8); MONO % 5.1 % (0.0-5.0); NEUTROPHILS # 8.5 10^3/uL (1.5-8.5); NEUTROPHILS % 80.6 % (36.0-66.0); PLATELET COUNT, AUTOMATED 250 10^3/uL (150-450); RED BLOOD COUNT 4.43 10^6/uL (4.00-5.40); WHITE BLOOD COUNT 10.6 10^3/uL (4.0-10.0)
[2019-11-02 09:23] LABS: ALBUMIN 3.6 GM/DL (3.2-5.2); BILIRUBIN,DIRECT 0.1 MG/DL (0.0-0.2); BILIRUBIN,TOTAL 0.4 MG/DL (0.2-1.0); TOTAL PROTEIN 7.2 GM/DL (6.4-8.2)
--- NOTE | 2019-11-02 09:39 | REPVR ---
PROCEDURE INFORMATION: Exam: US Pelvis Complete, Transabdominal and US Pelvis, Transvaginal and US Duplex Artery and Vein, Ovaries, Complete Exam date and time: 11/02/2019 9:13 AM Age: 34 years old Clinical indication: Pelvic pain; Additional info: Right lower quadrant pain TECHNIQUE: Imaging protocol: Real-time transabdominal and transvaginal pelvic ultrasound (complete) with image documentation. Transvaginal imaging was used for better evaluation of the endometrium and adnexa. Real-time duplex ultrasound scan of the arterial and venous flow of the ovaries with B-mode, color Doppler flow and spectral waveform analysis. COMPARISON: 1. US PELVIC NON-OB COMPLETE 04/20/2018 5:[address] ABD PELVIS W/O CONTRAST 12/14/2017 11:00:16 PM FINDINGS: Uterus/cervix: The uterus is not identified; the uterus is reportedly surgically absent. Right adnexa: The right ovary demonstrates color Doppler blood flow. The right ovary demonstrates spectral Doppler blood flow with venous waveform. The right ovary demonstrates spectral Doppler blood flow with low resistance arterial waveform. The right ovary measures 3.6 x 2.5 x 3.3 cm. The right ovary contains a 2.2 x 2 x 1.8 cm circumscribed ovoid structure that is mostly anechoic and contains a few thin internal septations/reticular echoes. No evidence of right ovarian torsion. Left adnexa: The left ovary demonstrates color Doppler blood flow. The left ovary demonstrates spectral Doppler blood flow with venous waveform. The left ovary demonstrates spectral Doppler blood flow with low resistance arterial waveform. The left ovary measures 1.9 x 1.7 x 2.2 cm. No left adnexal mass. No evidence of left ovarian torsion. Intraperitoneal space: Very small anechoic simple-appearing free intraperitoneal pelvic fluid. Bladder: The imaged portions of the urinary bladder appear unremarkable. The urinary bladder measures 6.2 x 3 x 6.6 cm. IMPRESSION: 1. No evidence of ovarian torsion. 2. Indeterminate but probably benign right ovarian 2.2 cm minimally complex-appearing cyst. Recommend 6-12 week follow-up ultrasound to ensure resolution. If the cyst is unchanged, then hemorrhagic cyst is unlikely, and continued follow-up with either ultrasound or MR should then be considered. 3. Nonspecific very small free intraperitoneal pelvic fluid, possibly physiologic. Electronically signed by: Favian Sarmiento On 11/02/2019 09:38:58 AM
[2019-11-02] MEDS ORDERED: MORPHINE 2 MG/ML 1ML VIAL (J2270) IV ONE (09:45)
[2019-11-02] MEDS ORDERED: NORC1TAB7 PO (10:55)
[2019-11-02 11:34] VITALS: BP 106/52
== END 2019-11-02 11:36 | disposition home or self-care (01) ==
LOC: M ED 07:49
DX: N83.291 Other ovarian cyst, right side (principal); F41.9 Anxiety disorder, unspecified; E05.90 Thyrotoxicosis, unspecified without thyrotoxic crisis or storm; Z79.890 Hormone replacement therapy
CPT/HCPCS: 76830; 76856; 80047; 80076; 81001; 83690; 85025; 93976; 96374; 96375; 99284; J1885; J2270

== ENCOUNTER → 2019-12-21 | Outpatient (CLI) | payer OTHER ==
[~2019-12-21] MED LIST changes: +LEVO125T4; +NORC1TAB7 PO; +SUPPLEMENTS
--- NOTE | 2019-12-21 16:43 | REP ---
INDICATION: OVARIAN CYST. COMPARISON: Comparison pelvic sonography November 02, 2019. Comparison CT study March 14, 2019.. TECHNIQUE: Transabdominal scanning is performed.. FINDINGS: The uterus is surgically absent. There is no evidence of free fluid in the cul-de-sac.. The right ovary has dimensions of 2.9 x 1.8 x 2.3 cm. It's Doppler flow is normal with a resistive index of 0.48. The left ovary dimensions are normal as well at 3.0 x 2.8 x 2.9 cm. It's Doppler flow was normal with resistive index of 0.41. There is a 2.8 x 2.0 x 2.2 cm cyst in the left ovary which appears simple by sonographic criteria. IMPRESSION: Normal pelvic sonography. Surgical absence of the uterus. 2.8 x 2.0 x 2.2 cm cyst in the left ovary. This is compatible with a follicle cyst. <Electronically signed by Jagdish De La Garza > 12/21/19 [id number]
== END ==
LOC: M WHC 15:55
PROVIDERS: ATTEND Obstetrics & Gynecology
DX: N83.299 Other ovarian cyst, unspecified side (principal)

== ENCOUNTER → 2020-01-03 | Outpatient (CLI) | payer OTHER ==
[2020-01-03 11:52] LABS: FREE T4 0.97 NG/DL (0.76-1.46); THYROID STIMULATING HORMONE 5.71 uIU/ML (0.358-3.740)
== END ==
LOC: M WUC 09:01
PROVIDERS: ATTEND Physician Assistant
DX: E03.9 Hypothyroidism, unspecified (principal)

== ENCOUNTER → 2020-09-05 | Outpatient (CLI) | payer OTHER ==
[~2020-09-05] MED LIST changes: +NICO1DIS12 TD; -NICO21DI31 TD; +OMEP40CA4 PO; -OMEP40CA97 PO
[2020-09-05 12:57] LABS: FOLATE 9.6 NG/ML; RHEUMATOID FACTOR QUANT < 10.0 IU/ML (<15.0); TOTAL 25(OH) VITAMIN D 40.6 NG/ML (30.0-100.0); VITAMIN B12 LEVEL 457 PG/ML
[2020-09-09 17:08] LABS: ANTINUCLEAR ANTIBODIES DIRECT Negative (Negative); VITAMIN E(ALPHA TOCOPHEROL) 7.1 mg/L (5.9-19.4); VITAMIN E(GAMMA TOCOPHEROL) 1.2 mg/L (0.7-4.9)
== END ==
LOC: M WUC 09:33
PROVIDERS: ATTEND Psychiatry & Neurology Neurology
DX: R51.9 Headache, unspecified (principal); R42 Dizziness and giddiness

== ENCOUNTER → 2021-03-12 | Outpatient (CLI) | payer OTHER ==
[~2021-03-12] MED LIST changes: -MOME50SP NARES; +NASO50SP3 NARES
[2021-03-12 10:32] LABS: HEMATOCRIT 43.2 % (36.0-47.0); HEMOGLOBIN 14.7 g/dl (12.0-15.5); MEAN CORPUSCULAR HEMOGLOBIN 31.1 pg (27.0-33.0); MEAN CORPUSCULAR VOLUME 91.5 fl (80.0-96.0); PLATELET COUNT, AUTOMATED 280 10^3/uL (150-450); RED BLOOD COUNT 4.72 10^6/uL (4.00-5.40); WHITE BLOOD COUNT 6.6 10^3/uL (4.0-10.0)
[2021-03-12 11:06] LABS: ALBUMIN 3.9 GM/DL (3.2-5.2); ALT/SGPT 27 U/L (12-78); BILIRUBIN,TOTAL 0.5 MG/DL (0.2-1.0); BLOOD UREA NITROGEN 14 MG/DL (7-18); CALCIUM LEVEL 9.5 MG/DL (8.5-10.1); CARBON DIOXIDE LEVEL 28 MEQ/L (21-32); CHLORIDE LEVEL 109 MEQ/L (98-107); CHOLESTEROL LEVEL 174 MG/DL (<200); CREATININE FOR GFR 0.67 MG/DL (0.55-1.30); FREE T4 1.38 NG/DL (0.76-1.46); GLOMERULAR FILTRATION RATE > 60.0 (>60); GLUCOSE, FASTING 78 MG/DL (70-100); HDL CHOLESTEROL 75 MG/DL (>40); LDL CHOLESTEROL 89 MG/DL (<100); MAGNESIUM LEVEL 2.1 MG/DL (1.8-2.4); NON-HDL-C 99 MG/DL; POTASSIUM SERUM 4.5 MEQ/L (3.5-5.1); SODIUM LEVEL 140 MEQ/L (136-145); TOTAL PROTEIN 7.3 GM/DL (6.4-8.2); TRIGLYCERIDES LEVEL 48 MG/DL (<150)
[2021-03-12 11:07] LABS: TOTAL 25(OH) VITAMIN D 22.2 NG/ML (30.0-100.0)
== END ==
LOC: M LAB 08:32
PROVIDERS: ATTEND Nurse Practitioner Family
DX: Z00.00 Encounter for general adult medical examination without abnormal findings (principal); E55.9 Vitamin D deficiency, unspecified; Z13.220 Encounter for screening for lipoid disorders; E03.9 Hypothyroidism, unspecified

== ENCOUNTER 2021-04-17 20:43 | Emergency (ER) | payer OTHER ==
[~2021-04-17] VITALS: Ht 167.6 cm; Wt 65.0 kg
[2021-04-17] MEDS ORDERED: tums (21:58)
[2021-04-17 22:34] LABS: BASO % 0.5 % (0.0-1.0); EOS # 0.2 10^3/uL (0.0-0.5); EOS % 1.8 % (0.0-3.0); HEMATOCRIT 39.1 % (36.0-47.0); HEMOGLOBIN 13.6 g/dl (12.0-15.5); LYMPH # 2.8 10^3/uL (1.5-5.0); LYMPH % 31.9 % (24.0-44.0); MEAN CORPUSCULAR HEMOGLOBIN 31.3 pg (27.0-33.0); MEAN CORPUSCULAR HGB CONC 34.8 g/dl (32.0-36.5); MEAN CORPUSCULAR VOLUME 89.9 fl (80.0-96.0); MONO # 0.6 10^3/uL (0.0-0.8); MONO % 6.3 % (2.0-8.0); NEUTROPHILS # 5.2 10^3/uL (1.5-8.5); NEUTROPHILS % 59.2 % (36.0-66.0); PLATELET COUNT, AUTOMATED 237 10^3/uL (150-450); RED BLOOD COUNT 4.35 10^6/uL (4.00-5.40); WHITE BLOOD COUNT 8.8 10^3/uL (4.0-10.0)
[2021-04-17 23:02] LABS: BLOOD UREA NITROGEN 13 MG/DL (7-18); CALCIUM LEVEL 8.9 MG/DL (8.5-10.1); CARBON DIOXIDE LEVEL 28 MEQ/L (21-32); CHLORIDE LEVEL 109 MEQ/L (98-107); CREATININE FOR GFR 0.69 MG/DL (0.55-1.30); GLOMERULAR FILTRATION RATE > 60.0 (>60); GLUCOSE, FASTING 83 MG/DL (70-100); POTASSIUM SERUM 3.9 MEQ/L (3.5-5.1); SODIUM LEVEL 140 MEQ/L (136-145)
[2021-04-17] MEDS ORDERED: ASPIRIN 81 MG CHEW TABLET PO ONE (23:05)
[2021-04-17] MEDS ORDERED: ISOVUE-370 76% 100ML VIAL As Ordered ONE (23:12)
[2021-04-17 23:45] LABS: ALBUMIN 3.4 GM/DL (3.2-5.2); ALT/SGPT 22 U/L (12-78); BILIRUBIN,DIRECT 0.1 MG/DL (0.0-0.2); BILIRUBIN,TOTAL 0.2 MG/DL (0.2-1.0); LIPASE 112 U/L (73-393); TOTAL PROTEIN 6.5 GM/DL (6.4-8.2)
[2021-04-18 00:07] LABS: CK-MB VALUE MASS < 1.0 NG/ML (<3.6); CPK CREATINE PHOSPHOKINASE 58 U/L (26-192); MB/CK RELATIVE INDEX 1.72 (< OR =4)
[2021-04-18 00:52] LABS: CK-MB VALUE MASS < 1.0 NG/ML (<3.6); CPK CREATINE PHOSPHOKINASE 60 U/L (26-192); MB/CK RELATIVE INDEX 1.67 (< OR =4)
[2021-04-18 02:25] VITALS: BP 114/56
== END 2021-04-18 02:32 | disposition home or self-care (01) ==
LOC: M ED 20:43
DX: R07.9 Chest pain, unspecified (principal); R06.00 Dyspnea, unspecified; I45.19 Other right bundle-branch block; E07.9 Disorder of thyroid, unspecified; I67.1 Cerebral aneurysm, nonruptured; Z79.899 Other long term (current) drug therapy; Z79.890 Hormone replacement therapy; F17.210 Nicotine dependence, cigarettes, uncomplicated
CPT/HCPCS: 36415; 71045; 71275; 80048; 80076; 82550; 82553; 83690; 85025; 93005; 93041; 94760; 99285; Q9967

== ENCOUNTER → 2021-07-23 | Outpatient (CLI) | payer OTHER ==
[~2021-07-23] MED LIST changes: +tums
== END ==
LOC: M LAB 09:28
PROVIDERS: ATTEND Nurse Practitioner Family
DX: E03.9 Hypothyroidism, unspecified (principal)

== ENCOUNTER 2021-11-26 10:30 | Emergency (ER) | payer OTHER ==
[~2021-11-26] VITALS: Ht 167.6 cm; Wt 67.1 kg
[2021-11-26 10:30] VITALS: BP 140/66
[2021-11-26 12:09] LABS: RSV AMPLIFICATION NEGATIVE (NEGATIVE)
[2021-11-26] MEDS ORDERED: HYDR-3363 PO (13:18)
== END 2021-11-26 13:55 | disposition home or self-care (01) ==
LOC: M ED 10:30
DX: F40.11 Social phobia, generalized (principal); R09.89 Other specified symptoms and signs involving the circulatory and respiratory systems; R51.9 Headache, unspecified; F17.200 Nicotine dependence, unspecified, uncomplicated

== ENCOUNTER → 2021-12-08 | Outpatient (CLI) | payer OTHER ==
[~2021-12-08] MED LIST changes: +HYDR-3363 PO
[2021-12-08 10:51] LABS: THYROID STIMULATING HORMONE 2.78 uIU/ML (0.358-3.740)
[2021-12-09 11:17] LABS: FREE T4 1.33 NG/DL (0.76-1.46)
== END ==
LOC: M LAB 09:22
PROVIDERS: ATTEND Nurse Practitioner Family
DX: E03.9 Hypothyroidism, unspecified (principal)

== ENCOUNTER → 2024-01-26 | Outpatient (REF) | payer OTHER | LOC: M LAB REF 14:58 | PROVIDERS: ATTEND Internal Medicine Endocrinology, Diabetes & Metabolism | DX: E04.1 Nontoxic single thyroid nodule (principal); E04.2 Nontoxic multinodular goiter ==

== ENCOUNTER → 2024-06-07 | Outpatient (CLI) | payer OTHER ==
[2024-06-07 10:41] LABS: FREE T4 1.86 NG/DL (0.89-1.76); THYROID STIMULATING HORMONE 0.869 uIU/ML (0.55-4.78)
== END ==
LOC: M LAB 09:28
PROVIDERS: ATTEND Nurse Practitioner Family
DX: E03.9 Hypothyroidism, unspecified (principal)

== ENCOUNTER → 2024-07-03 | Outpatient (CLI) | payer OTHER ==
[~2024-07-03] MED LIST changes: -FLOM0.4C39 PO; +TAMS-18 PO
[2024-07-03 13:20] LABS: APPEARANCE, URINE HAZY (CLEAR); BACTERIA, URINE AUTO NEGATIVE (NEGATIVE); BILIRUBIN, URINE AUTO NEGATIVE (NEGATIVE); BLOOD, URINE BLOOD NEGATIVE (NEGATIVE); COLOR, URINE YELLOW (YELLOW); GLUCOSE, URINE (UA) AUTO NEGATIVE (NEGATIVE); KETONE, URINE AUTO TRACE mg/dL (NEGATIVE); LEUKOCYTE ESTERASE, URINE AUTO NEGATIVE (NEGATIVE); MUCUS, URINE SMALL (NEGATIVE); NITRITE, URINE AUTO NEGATIVE (NEGATIVE); PROTEIN, URINE AUTO NEGATIVE (NEGATIVE); RBC, URINE AUTO 0 /HPF (0-3); SPECIFIC GRAVITY URINE AUTO 1.025 (1.002-1.035); SQUAMOUS EPITHELIAL CELL UR AU 2 /HPF (0-6); UROBILINOGEN, URINE AUTO 0.2 mg/dL (0.0-2.0); WBC, URINE AUTO 1 /HPF (0-3)
[2024-07-03 13:53] LABS: HIV 1&2 SCREEN NEGATIVE (NEGATIVE)
[2024-07-03 14:01] LABS: HEPATITIS C VIRUS ABY INDEX 0.07 INDEX (<0.8)
== END ==
LOC: M LAB 12:09
PROVIDERS: ATTEND Internal Medicine
DX: N89.8 Other specified noninflammatory disorders of vagina (principal)

== ENCOUNTER → 2024-07-03 | Outpatient (REF) | payer OTHER ==
[2024-07-05 15:02] LABS: BVAB 2 POSITIVE (NEGATIVE); CHLAMYDIA TRACHOMATIS NAA NOT DETECTED (NOT DETECTED); Neisseria gonorrhoeae NAA NOT DETECTED (NOT DETECTED)
[2024-07-05 15:17] LABS: CANDIDA ALBICANS NAA DETECTED (NOT DETECTED); CANDIDA GLABRATA NAA NOT DETECTED (NOT DETECTED); TRICH VAG BY NAA NOT DETECTED (NOT DETECTED)
== END ==
LOC: M SFHCLERA 10:29
PROVIDERS: ATTEND Internal Medicine
DX: N89.8 Other specified noninflammatory disorders of vagina (principal)

== ENCOUNTER → 2024-12-06 | Outpatient (CLI) | payer OTHER ==
[~2024-12-06] MED LIST changes: -IBUP-1022 PO; +IBUP600T42 PO
[2024-12-06 12:38] LABS: FREE T4 1.27 NG/DL (0.89-1.76)
== END ==
LOC: M LAB 11:20
PROVIDERS: ATTEND Nurse Practitioner Family
DX: E03.9 Hypothyroidism, unspecified (principal)

== ENCOUNTER → 2025-01-01 | Outpatient (REF) | payer OTHER ==
[2025-01-01 18:57] LABS: BASO # 0.1 10^3/uL (0.0-0.2); BASO % 0.8 % (0.0-1.0); EOS # 0.4 10^3/uL (0.0-0.5); EOS % 4.9 % (0.0-3.0); LYMPH # 1.8 10^3/uL (1.5-5.0); LYMPH % 25.0 % (24.0-44.0); MONO # 0.4 10^3/uL (0.0-0.8); MONO % 5.3 % (2.0-8.0); NEUTROPHILS # 4.6 10^3/uL (1.5-8.5); NEUTROPHILS % 63.6 % (36.0-66.0); PLATELET COUNT, AUTOMATED 294 10^3/uL (150-450)
[2025-01-01 19:04] LABS: ALT/SGPT 20 U/L (7.0-40); AST/SGOT 14 U/L (<34); CALCIUM LEVEL 9.0 MG/DL (8.5-10.1); CARBON DIOXIDE LEVEL 24 MMOL/L (20-31); CHLORIDE LEVEL 106 MMOL/L (98-107); CHOLESTEROL LEVEL 168 MG/DL (<200); CHOLESTEROL RISK RATIO 2.59 (<5); CREATININE FOR GFR 0.63 MG/DL (0.55-1.30); GLOMERULAR FILTRATION RATE > 90.0 (>58); LDL CHOLESTEROL 91.5 MG/DL (<100); NON-HDL-C 103.3 MG/DL; POTASSIUM SERUM 4.2 MMOL/L (3.5-5.1); SODIUM LEVEL 137 MMOL/L (136-145); TRIGLYCERIDES LEVEL 59 MG/DL (<150)
[2025-01-01 19:08] LABS: TOTAL 25(OH) VITAMIN D 29.6 NG/ML (20.0-100.0)
[2025-01-01 19:20] LABS: ESTIMATED AVERAGE GLUCOSE 91.0 MG/DL (60-110)
== END ==
LOC: M SFHCLERA 10:13
PROVIDERS: ATTEND Internal Medicine
DX: Z00.01 Encounter for general adult medical examination with abnormal findings (principal); Z12.31 Encounter for screening mammogram for malignant neoplasm of breast

== ENCOUNTER → 2025-01-05 | Outpatient (REF) | payer OTHER ==
[2025-01-09 12:40] LABS: HPV APTIMA Not Detected (Not Detected)
== END ==
LOC: M SFHCLERA 17:46
PROVIDERS: ATTEND Student in an Organized Health Care Education/Training Program
DX: Z01.419 Encounter for gynecological examination (general) (routine) without abnormal findings (principal)

== ENCOUNTER → 2025-01-19 | Outpatient (CLI) | payer OTHER | LOC: M WHC 07:21 | PROVIDERS: ATTEND Internal Medicine | DX: Z12.31 Encounter for screening mammogram for malignant neoplasm of breast (principal); R92.333 Mammographic heterogeneous density, bilateral breasts ==